=== PATIENT | male | born 1965 | race Caucasian/White ===

== ENCOUNTER → 2024-09-30 | Outpatient (CLI) | payer OTHER | END | disposition home or self-care (01) | LOC: RAD 12:28 | PROVIDERS: ATTEND Internal Medicine | DX: R55 Syncope and collapse (principal); I77.89 Other specified disorders of arteries and arterioles; M53.82 Other specified dorsopathies, cervical region | CPT/HCPCS: 93306; 93880 ==

== ENCOUNTER 2024-11-13 10:32 | Day surgery (SDC) | payer OTHER ==
[2024-11-11 14:06] VITALS: BP 116/68; PULSE 94; RESP 18; TEMP 98.3; O2SAT 96
[2024-11-11 15:04] LABS: +ADD MANUAL DIFF(NO CHRG) NO; BASOPHIL # 0.1 10^3/uL (0.0-0.1); BASOPHIL % 0.6 % (0.2-1.2); EOSINOPHIL # 0.3 10^3/uL (0.0-0.2); HEMATOCRIT(ML) 44.9 % (37.0-53.0); HEMOGLOBIN 14.9 g/dL (13.9-16.3); LYMPHOCYTES # 3.19 10^3/uL1 (1.0-4.8); LYMPHOCYTES % 25.3 % (24.0-44.0); MEAN CORP HGB 29.4 pg (26-34); MEAN CORP HGB CONCENTRATION 33.2 g/dL (33-36.5); MEAN CORP VOLUME 88.7 fL (78-100); MONOCYTES # 0.8 10^3/uL (0.3-0.8); MONOCYTES % 6.3 % (5.0-12.0); NEUTROPHIL # 8.3 10^3/uL (1.8-7.7); NEUTROPHILS % 65.6 % (41.0-85.0); PLATELET COUNT 240 10^3/uL (150-400); RED BLOOD CELL 5.06 10^6/uL (4.50-5.90); RED CELL DISTRIBUTION WIDTH 13.5 % (11.5-14.5); WHITE BLOOD CELL 12.6 10^3/uL (4.5-11.0)
[2024-11-11 15:17] LABS: PROTHROMBIN PROTIME 10.4 SEC (9.3-11.6)
[2024-11-11 15:19] LABS: ANION GAP 14.6; BUN/CREATININE RATIO 23.8 (10.0-20.0); CALCIUM 8.8 mg/dL (8.4-10.5); CARBON DIOXIDE 22.6 mmol/L (20.0-32); CREATININE SERUM 1.05 mg/dL (0.59-1.40); EST GFR, NON-AA 72.3 (>/=60); POTASSIUM 4.2 mmol/L (3.6-5.2)
[~2024-11-13] VITALS: Ht 188 cm; Wt 126.1 kg
[~2024-11-13 10:32] MED LIST: NS 1000ML 1,000 ML ONE
[2024-11-13] MEDS ORDERED: MULT-632 PO (11:09)
[2024-11-13] MEDS ORDERED: FOLI0.8C PO (11:09)
[2024-11-13] MEDS ORDERED: SEMA2PEN SQ (11:09)
[2024-11-13] MEDS ORDERED: PIOG15TA26 PO (11:09)
[2024-11-13] MEDS ORDERED: EZET10TA81 PO (11:09)
[2024-11-13] MEDS ORDERED: MELO15TA24 PO (11:09)
[2024-11-13] MEDS ORDERED: METF10007 PO (11:09)
[2024-11-13] MEDS ORDERED: ATEN50TA PO (11:09)
[2024-11-13] MEDS ORDERED: ASPI-667 PO (11:09)
[2024-11-13] MEDS ORDERED: PANT40TA6 PO (11:09)
[2024-11-13] MEDS ORDERED: DULO30CA2 PO (11:09)
[2024-11-13] MEDS ORDERED: GLYB5TAB3 PO (11:09)
[2024-11-13] MEDS: NS 1000ML 1,000 ML IV ONE (11:10)
[2024-11-13] MEDS ORDERED: SUBLIMAZE 100MCG/2ML ONE (11:27)
[2024-11-13] MEDS ORDERED: VERSED ONE (11:28)
[2024-11-13] MEDS ORDERED: MARCAINE 0.25%-EPI 1:200,000 ONE (11:48)
[2024-11-13] MEDS ORDERED: XYLOCAINE 1%-EPI ONE (11:48)
[2024-11-13 12:12] VITALS: BP 107/65; PULSE 90; RESP 16; TEMP 97.8; O2SAT 93
[2024-11-13 12:29] VITALS: BP 115/67; PULSE 87; RESP 16; O2SAT 95
== END 2024-11-13 12:40 | disposition home or self-care (01) ==
LOC: SDC 10:32
PROVIDERS: ATTEND Internal Medicine
DX: R55 Syncope and collapse (principal); I10 Essential (primary) hypertension; E11.40 Type 2 diabetes mellitus with diabetic neuropathy, unspecified; G89.29 Other chronic pain; E78.00 Pure hypercholesterolemia, unspecified; M10.9 Gout, unspecified; K21.9 Gastro-esophageal reflux disease without esophagitis; F32.A Depression, unspecified; Z88.5 Allergy status to narcotic agent; Z98.890 Other specified postprocedural states; Z88.8 Allergy status to other drugs, medicaments and biological substances; Z79.899 Other long term (current) drug therapy
CPT/HCPCS: 85025; 36415; 80048; 85610; 33285; 82948; J7030; A6258; J2250; J3010; J3490; C1764; 99152